=== PATIENT | male | born 1995 | race Two or more races ===

== ENCOUNTER 2016-10-24 21:43 | Emergency (ER) | payer MEDICAID ==
--- NOTE | 2016-10-24 22:36 | Emergency Department Record ---
History of Present Illness - General Stated Complaint: LOWER/CENTER BACK PAIN Time Seen by Provider: 10/24/16 22:33 Source: Patient Mode of Arrival: Ambulatory Limitations: No limitations - History of Present Illness Initial Comments: 21 yo male presents to ED with a CC of mid-low back pain for the past several weeks. 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 Patient denies fevers, chills, urinary retention, dysuria, or history of IVDA. Patient denies numbness, tingling, or lower extremity weakness. Patient was seen at [facility] 2 weeks ago, prescribed prednisone which improved his symptoms, however symptoms are beginning to return. Patient denies health problems at his baseline. MD Complaint: Back pain Onset/Timin -: Week(s) Similar Symptoms Previously: Yes Severity: Moderate Quality: Aching Consistency: Constant Improves With: Medication Worsens With: Movement Context: Unknown Associated Symptoms: Denies other symptoms - Related Data Previous Rx's Medication Instructions Recorded Naproxen [Naprosyn] 500 mg PO Q12H #30 tab 10/24/16 Allergies Allergy/AdvReac Type Severity Reaction Status Date / Time No Known Drug Allergies Allergy Unverified 10/06/16 19:52 Review of Systems Constitutional: Denies: Chills, Fever, Malaise, Night sweats Eyes: Denies: Eye discharge, Eye pain ENT: Denies: Congestion, Ear pain, Epistaxis Respiratory: Denies: Cough, Dyspnea Cardiovascular: Denies: Chest pain, Dyspnea on exertion, Palpitations Endocrine: Denies: Fatigue, Heat or cold intolerance Gastrointestinal: Denies: Abdominal pain, Nausea, Vomiting Genitourinary: Denies: Frequency, Hematuria, Incontinence, Retention Musculoskeletal: Reports: Back pain. Denies: Arthralgia, Gout, Joint swelling Skin: Denies: Bruising, Change in color Neurological: Denies: Abnormal gait, Confusion, Headache, Seizure Psychiatric: Denies: Anxiety Hematological/Lymphatic: Denies: Anemia, Blood Clots Past Medical History - SOCIAL HISTORY Smoking Status: Never smoker - RESPIRATORY Hx Respiratory Disorders: No - CARDIOVASCULAR Hx Cardio Disorders: No - NEURO Hx Neuro Disorders: No - GI Hx GI Disorders: No - Hx Genitourinary Disorders: No - ENDOCRINE Hx Endocrine Disorders: No - MUSCULOSKELETAL Hx Musculoskeletal Disorders: No - PSYCH Hx Psych Problems: Yes Hx Anxiety: Yes Hx Behavior Problems: Yes (Bi-Polar) Hx Depression: Yes Physical Exam - General General Appearance: Alert, Oriented x3, Cooperative, No acute distress, Other ( ambulates with steady gait) Limitations: No limitations - Head Head exam: Atraumatic, Normocephalic, Normal inspection Head exam detail: negative: Abrasion, Contusion, Richards's sign, General tenderness, Hematoma, Laceration - Eye Eye exam: Normal appearance. negative: Conjunctival injection, Periorbital swelling, Periorbital tenderness, Scleral icterus - ENT Ear exam: negative: Auricular hematoma, Auricular trauma Nasal Exam: negative: Active bleeding, Discharge, Dried blood, Foreign body Mouth exam: negative: Drooling, Laceration, Muffled voice, Tongue elevation - Neck Neck exam: Normal inspection. negative: Meningismus, Tenderness - Respiratory Respiratory exam: Normal lung sounds bilaterally. negative: Rales, Respiratory distress, Rhonchi, Stridor - Cardiovascular Cardiovascular Exam: Regular rate, Normal rhythm, Normal heart sounds - GI/Abdominal GI/Abdominal exam: Soft. negative: Rebound, Rigid, Tenderness - Rectal Rectal exam: Deferred - exam: Deferred - Extremities Extremities exam: Normal inspection, Other (EHL muscle strength, dorsiflexion, and plantar flexion are all 5/5 and symmetric). negative: Calf tenderness, Pedal edema, Tenderness - Back Back exam: Reports: Normal inspection. Denies: CVA tenderness (R), CVA tenderness (L), Paraspinal tenderness, Rash noted - Neurological Neurological exam: Alert, Normal gait, Oriented X3 - Psychiatric Psychiatric exam: Normal affect, Normal mood - Skin Skin exam: Normal color. negative: Abrasion Type of lesion: negative: abrasion Course - Reevaluation(s) Reevaluation #1: 10/24/16 22:40 Patient denies any form of trauma or injury, as a result radiographs are not indicated. Patient denies any concerning symptoms for spinal cord compression syndrome. Will treat with Naprosyn with instructions to follow-up with Dr. Jones in the next 1-2 weeks for further evaluation. Disposition Disposition: Discharge Clinical Impression: Chronic low back pain Qualifiers: Back pain laterality: midline Sciatica presence: without sciatica Qualified Code(s): M54.5 - Low back pain Disposition: Home, Self-Care Condition: (2) Stable Instructions: Low Back Strain (ED) Additional Instructions: Return to ED if your symptoms worsen or if you have any concerns. Naprosyn as directed. Follow-up with Dr. Jones in 1 week as directed. Prescriptions: Naproxen [Naprosyn] 500 mg PO Q12H #30 tab. Time of Disposition: 22:35
== END 2016-10-24 22:54 | disposition home or self-care (01) ==
LOC: ER 21:43
DX: M54.5 Low back pain (principal)
CPT/HCPCS: 99282